=== PATIENT | male | born 1975 | race Caucasian/White ===

== ENCOUNTER → 2019-05-17 | Outpatient (CLI) | payer OTHER ==
[2019-05-17 12:59] LABS: FREE T4 (FREE THYROXINE) 0.95 ng/dL (0.76-1.46); THYROID STIMULATING HORMONE 3.46 uIU/mL (0.36-3.74)
== END | disposition home or self-care (01) ==
LOC: RADPV 09:31
PROVIDERS: ATTEND Orthopaedic Surgery
DX: E03.9 Hypothyroidism, unspecified (principal); M21.41 Flat foot [pes planus] (acquired), right foot; M21.42 Flat foot [pes planus] (acquired), left foot; R07.89 Other chest pain
CPT/HCPCS: 84439; 84443; 84481; 93306

== ENCOUNTER → 2019-06-26 | Outpatient (CLI) | payer OTHER | END | disposition home or self-care (01) | LOC: RADPV 10:12 | PROVIDERS: ATTEND Orthopaedic Surgery | DX: I86.1 Scrotal varices (principal); N43.3 Hydrocele, unspecified; C62.90 Malignant neoplasm of unspecified testis, unspecified whether descended or undescended | CPT/HCPCS: 76870 ==